=== PATIENT | female | born 1980 | race Caucasian/White ===

== ENCOUNTER 2018-11-03 17:19 | Emergency (ER) | payer BC, OTHER ==
[2018-11-03 18:08] LABS: Absolute Lymphocytes (CBC) 1.9 K/uL (0.7-4.9); Basophils % 0.6 % (0-1.3); Hematocrit 40.1 % (36.0-45.0); Lymphocytes % 25.7 % (15.3-44.8); MPV 9.4 fL (7.6-11.3); RBC Red Blood Cell Count 4.51 M/uL (3.86-4.86)
[2018-11-03 18:26] LABS: Bilirubin Direct 2.6 mg/dL (0-0.2); Bilirubin Total 4.2 mg/dL (0.2-1.0); Potassium 3.5 mmol/L (3.5-5.1); Protein, Total 8.5 g/dL (6.4-8.2)
[2018-11-03] MEDS ORDERED: FAMOTIDINE 20 MG/2 ML VIAL IV ONE (19:00)
[2018-11-03] MEDS ORDERED: NA CHLORIDE 0.9% 2,000 ML ONE (19:00)
--- NOTE | 2018-11-03 19:11 | ER ---
Nurse's Notes [facility] Name: Ema Caballero Age: 38 yrs Sex: Female : 1980 Arrival Date: 11/03/2018 Time: 17:22 Bed 18 Private MD: Diagnosis: Abdominal tenderness;Cholelithiasis;Acute pancreatitis Presentation: 11/03 17:35 Presenting complaint: Patient states: Epigastric pain that radiates to the upper back, sg reports normal BM, denies Nausea reports vomiting x1 but no relief from symptoms, pt states has happened in the past but went away, this time its consistent. pt denies any symptoms at this time, pt denies fever. Transition of care: patient was not received from another setting of care. Onset of symptoms was November 03, 2018. Risk Assessment: Do you want to hurt yourself or someone else? Patient reports no desire to harm self or others. Initial Sepsis Screen: Does the patient meet any 2 criteria? No. Patient's initial sepsis screen is negative. Does the patient have a suspected source of infection? No. Patient's initial sepsis screen is negative. Care prior to arrival: None. 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 - Social history:: Smoking status: Patient/guardian denies using tobacco. - Ebola Screening: : Patient negative for fever greater than or equal to 101.5 degrees Fahrenheit, and additional compatible Ebola Virus Disease symptoms Patient denies exposure to infectious person Patient denies travel to an Ebola-affected area in the 21 days before illness onset No symptoms or risks identified at this time. Screenin:58 Abuse screen: Denies threats or abuse. Denies injuries from another. Nutritional sg screening: No deficits noted. Tuberculosis screening: No symptoms or risk factors identified. Never had TB. 22:03 Fall Risk ao Assessment: 17:57 General: Appears in no apparent distress. well groomed, well developed, well nourished, sg Behavior is calm, cooperative, appropriate for age. Pain: Complains of pain in left mid back, right mid back and epigastric area. Neuro: Level of Consciousness is awake, alert, obeys commands, Oriented to person, place, time. Cardiovascular: Capillary refill is brisk in bilateral fingers Patient's skin is warm and dry. Chest pain is denied. Respiratory: Airway is patent Respiratory effort is even, unlabored, Respiratory pattern is regular, symmetrical. GI: Abdomen is round non-distended, Reports normal bowel habits, tolerance of fluids, tolerance of food, vomiting. : No signs and/or symptoms were reported regarding the genitourinary system. EENT: No signs and/or symptoms were reported regarding the EENT system. Derm: Skin is pink, warm \T\ dry. Musculoskeletal: No signs and/or symptoms reported regarding the musculoskeletal system. 19:40 General: Appears in no apparent distress. comfortable, Behavior is calm, cooperative, ao appropriate for age. Pain: Complains of pain in epigastric area. Neuro: Level of Consciousness is awake, alert, obeys commands, Oriented to person, place, time, Appropriate for age Moves all extremities. Full function Speech is normal, Facial symmetry appears normal. Cardiovascular: Capillary refill < 3 seconds is brisk Patient's skin is warm and dry. Respiratory: Airway is patent Respiratory effort is even, unlabored, Respiratory pattern is regular, symmetrical. GI: Abdomen is round non-distended, Reports lower abdominal pain, normal bowel habits, tolerance of fluids, tolerance of food. : No signs and/or symptoms were reported regarding the genitourinary system. EENT: No signs and/or symptoms were reported regarding the EENT system. Derm: Skin is intact, Skin is pink, warm \T\ dry. Musculoskeletal: No signs and/or symptoms reported regarding the musculoskeletal system. 20:30 Reassessment: EMS ETA is 2 hours. Patient in no distress. ao 22:39 Reassessment: Patient and/or family updated on plan of care and expected duration. Pain ao level reassessed. Patient is alert, oriented x 3, equal unlabored respirations, skin warm/dry/pink. Waiting on EMS for transportation. 23:50 Reassessment: hand off care to [facility] Patient stable at this time. ao Vital Signs: 17:37 BP 133 / 90; Pulse 81 MON; Resp 17 S; Temp 97.4; Pulse Ox 99% on R/A; Weight 104.33 kg sg (R); Height 5 ft. 3 in. (160.02 cm) (R); 19:43 BP 132 / 88; Pulse 69; Resp 16; Pulse Ox 99% ; ao 20:30 BP 123 / 79; Pulse 66; Resp 18; Pulse Ox 99% on R/A; Pain 4/10; ao 22:39 BP 123 / 75; Pulse 65; Resp 16; Pulse Ox 100% on R/A; ao 17:37 Body Mass Index 40.74 (104.33 kg, 160.02 cm) ED Course: 17:22 Patient arrived in ED. as 17:24 Everett Sagastume MD is Attending Physician. kdr 17:34 Yogi Dias, ELEUTERIO is Primary Nurse. sg 17:35 Arm band placed on right wrist. sg 17:37 Triage completed. sg 17:50 Initial lab(s) drawn, by pr, sent to lab. Inserted saline lock: 20 gauge in right sg antecubital area, using aseptic technique. Blood collected. 17:57 Urine collected: clean catch specimen. sg 18:35 Attending Physician role handed off by Everett Sagastume MD tali 18:35 Lonnie Gallegos MD is Attending Physician. tali 18:44 Radiology exam delayed due to test not completed at this time. [email or web address] 18:50 XRAY Chest (1 view) In Process Unspecified. EDMS 19:00 Initial lab(s) drawn, by pr, sent to lab. lab add ons have been sent as ordered by . 19:05 US Abdomen Limited In Process Unspecified. EDMS 19:18 Radiology exam delayed due to test not completed at this time. eh 20:[address] via wheelchair. eh 20:12 CT completed. Patient tolerated procedure well. Patient moved back from CT. eh 20:16 CT Abd/Pelvis - IV Contrast Only In Process Unspecified. EDMS 22:00 Basic Metabolic Panel Sent. ao 22:03 Patient has correct armband on for positive identification. Pulse ox on. NIBP on. ao 23:51 No provider procedures requiring assistance completed. Patient transferred, IV remains ao in place. Administered Medications: 18:45 Drug: NS 0.9% 1000 ml Route: IV; Rate: 1 bolus; Site: right antecubital; sg 21:59 Follow up: IV Status: Completed infusion; IV Intake: 1000ml ao 18:45 Drug: NS 0.9% 1000 ml Route: IV; Rate: 1 bolus; Site: right antecubital; sg 21:59 Follow up: IV Status: Completed infusion; IV Intake: 1000ml ao 19:30 Drug: Pepcid 20 mg Route: IVP; Site: right antecubital; ao 21:59 Follow up: Response: No adverse reaction ao 19:31 Drug: Zosyn 3.375 grams Route: IVPB; Infused Over: 60 mins; Site: right antecubital; ao 21:00 Follow up: IV Status: Completed infusion; IV Intake: 100ml ao 19:52 Not Given (Duplicate Order): NS 0.9% 1000 ml IV at 125 ml/hr continuous atli 21:58 Drug: NS 0.9% 1000 ml Route: IV; Rate: 250 ml/hr; Site: right antecubital; ao 23:53 Follow up: IV Status: Infusion continued upon transfer; IV Intake: 500ml ao Intake: 21:00 IV: 100ml; Total: 100ml. ao 21:59 IV: 1000ml; Total: 1100ml. ao 21:59 IV: 1000ml; Total: 2100ml. ao 23:53 IV: 500ml; Total: 2600ml. ao Outcome: 19:10 ER care complete, transfer ordered by . tali 23:52 Transferred by [facility] to [facility], Transfer form completed. ao 23:52 Condition: stable 23:52 Instructed on the need for transfer. 23:53 Patient left the ED. ao Signatures: Dispatcher [employer] EDYogi Esteban, RN Lonnie Jaime MD MD cha Rittger, Kevin, MD MD kdr Hagler, Ervin eh Martinez, Amelia as Ortiz, Alex, RN RN ao Garcia, Jessica [email or web address]
--- NOTE | 2018-11-03 19:12 | EDPHYS ---
Physician Documentation [facility] Name: Ema Caballero Age: 38 yrs Sex: Female : 1980 Arrival Date: 11/03/2018 Time: 17:22 Bed 18 Private MD: ED Physician Lonnie Gallegos HPI: 11/03 18:37 This 38 yrs old Female presents to ER via Ambulatory with complaints of kdr Epigastric Pain, Back Pain. 18:37 The patient presents with abdominal pain in the epigastric area, in the upper abdomen, kdr in the left upper quadrant. Onset: The symptoms/episode began/occurred suddenly, 3 day(s) ago. The symptoms radiate to left back. Associated signs and symptoms: Pertinent positives: nausea and vomiting, constipation, Pertinent negatives: blood in stools, chest pain, diarrhea, dysuria, fever, headache, hematuria, palpitations, shortness of breath, vaginal discharge, vomiting blood. The symptoms are described as achy, crampy, intermittent, vague, waxing/waning. Modifying factors: The symptoms are alleviated by nothing, the symptoms are aggravated by nothing. Severity of pain: At its worst the pain was severe today, in the emergency department the pain has improved markedly, pain almost resolved in the ED. The patient has experienced similar episodes in the past, a few times, but today's symptoms are worse, lasting longer. The patient has not recently seen a physician. 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 - Social history:: Smoking status: Patient/guardian denies using tobacco. - Ebola Screening: : Patient negative for fever greater than or equal to 101.5 degrees Fahrenheit, and additional compatible Ebola Virus Disease symptoms Patient denies exposure to infectious person Patient denies travel to an Ebola-affected area in the 21 days before illness onset No symptoms or risks identified at this time. ROS: 18:37 Constitutional: Negative for fever, chills, and weight loss, Eyes: Negative for injury, kdr pain, redness, and discharge, Neck: Negative for injury, pain, and swelling, Cardiovascular: Negative for chest pain, palpitations, and edema, Respiratory: Negative for shortness of breath, cough, wheezing, and pleuritic chest pain, Back: Negative for injury and pain, : Negative for injury, bleeding, discharge, and swelling, MS/Extremity: Negative for injury and deformity, Skin: Negative for injury, rash, and discoloration, Neuro: Negative for headache, weakness, numbness, tingling, and seizure activity. Psych: Negative for depression, anxiety, suicide ideation, homicidal ideation, and hallucinations, Allergy/Immunology: Negative for hives, rash, and allergies, Endocrine: Negative for neck swelling, polydipsia, polyuria, polyphagia, and marked weight changes, Hematologic/Lymphatic: Negative for swollen nodes, abnormal bleeding, and unusual bruising. 18:37 Abdomen/GI: Positive for abdominal pain, nausea and vomiting, constipation, abdominal cramps, Negative for diarrhea, abdominal distension, anorexia, dysphagia, hematemesis, black/tarry stool, rectal pain, rectal bleeding, bowel incontinence. Exam: 18:37 Constitutional: This is a well developed, well nourished patient who is awake, alert, kdr and in no acute distress. Head/Face: Normocephalic, atraumatic. Eyes: Pupils equal round and reactive to light, extra-ocular motions intact. Lids and lashes normal. Conjunctiva and sclera are non-icteric and not injected. Cornea within normal limits. Periorbital areas with no swelling, redness, or edema. Neck: Trachea midline, no thyromegaly or masses palpated, and no cervical lymphadenopathy. Supple, full range of motion without nuchal rigidity, or vertebral point tenderness. No Meningismus. Chest/axilla: Normal chest wall appearance and motion. Nontender with no deformity. No lesions are appreciated. Cardiovascular: Regular rate and rhythm with a normal S1 and S2. No gallops, murmurs, or rubs. Normal PMI, no JVD. No pulse deficits. Respiratory: Lungs have equal breath sounds bilaterally, clear to auscultation and percussion. No rales, rhonchi or wheezes noted. No increased work of breathing, no retractions or nasal flaring. Back: No spinal tenderness. No costovertebral tenderness. Full range of motion. Skin: Warm, dry with normal turgor. Normal color with no rashes, no lesions, and no evidence of cellulitis. MS/ Extremity: Pulses equal, no cyanosis. Neurovascular intact. Full, normal range of motion. Neuro: Awake and alert, GCS 15, oriented to person, place, time, and situation. Cranial nerves II-XII grossly intact. Motor strength 5/5 in all extremities. Sensory grossly intact. Cerebellar exam normal. Normal gait. Psych: Awake, alert, with orientation to person, place and time. Behavior, mood, and affect are within normal limits. 18:37 Abdomen/GI: Inspection: obese Bowel sounds: active, all quadrants, Palpation: soft, mild abdominal tenderness, in the epigastric area and left upper quadrant, mass, is not appreciated, rebound tenderness, is not appreciated, Pain is minimal at best. Vital Signs: 17:37 BP 133 / 90; Pulse 81 MON; Resp 17 S; Temp 97.4; Pulse Ox 99% on R/A; Weight 104.33 kg sg (R); Height 5 ft. 3 in. (160.02 cm) (R); 19:43 BP 132 / 88; Pulse 69; Resp 16; Pulse Ox 99% ; ao 20:30 BP 123 / 79; Pulse 66; Resp 18; Pulse Ox 99% on R/A; Pain 4/10; ao 22:39 BP 123 / 75; Pulse 65; Resp 16; Pulse Ox 100% on R/A; ao 17:37 Body Mass Index 40.74 (104.33 kg, 160.02 cm) MDM: 18:35 Patient medically screened. [facility] 19:40 Data reviewed: vital signs, nurses notes, lab test result(s), EKG, radiologic studies, tali plain films. 11/03 17:28 Order name: Basic Metabolic Panel [facility] 11/03 17:28 Order name: CBC with Diff; Complete Time: 18:33 [facility] 11/03 17:28 Order name: Creatinine for Radiology; Complete Time: 18:33 [facility] 11/03 17:28 Order name: Hepatic Function; Complete Time: 18:33 [facility] 11/03 17:28 Order name: Lipase; Complete Time: 18:33 [facility] 11/03 17:29 Order name: Basic Metabolic Panel; Complete Time: 18:33 EDMS 11/03 18:36 Order name: Magnesium; Complete Time: 19:38 tali 11/03 18:36 Order name: NT PRO-BNP; Complete Time: 19:38 [facility] 11/03 18:36 Order name: PT-INR; Complete Time: 19:38 [facility] 11/03 18:36 Order name: Troponin (emerg Dept Use Only); Complete Time: 19:38 [facility] 11/03 18:36 Order name: XRAY Chest (1 view); Complete Time: 21:00 [facility] 11/03 18:36 Order name: CT Abd/Pelvis - IV Contrast Only; Complete Time: 21:00 [facility] 11/03 19:11 Order name: Test, Serum; Complete Time: 19:38 11/03 19:12 Order name: Urine Dipstick--Ancillary (enter results); Complete Time: 19:38 [facility] 11/03 17:28 Order name: IV Saline Lock; Complete Time: 17:58 [facility] 11/03 17:28 Order name: Labs collected and sent; Complete Time: 17:58 [facility] 11/03 18:36 Order name: EKG; Complete Time: 18:38 [facility] 11/03 18:36 Order name: Cardiac monitoring; Complete Time: 18:39 [facility] 11/03 18:36 Order name: EKG - Nurse/Tech; Complete Time: 22:51 [facility] 11/03 18:36 Order name: O2 Per Protocol; Complete Time: 18:39 [facility] 11/03 18:36 Order name: O2 Sat Monitoring; Complete Time: 18:39 [facility] 11/03 18:36 Order name: US Abdomen Limited; Complete Time: 21:00 [facility] Administered Medications: 18:45 Drug: NS 0.9% 1000 ml Route: IV; Rate: 1 bolus; Site: right antecubital; sg 21:59 Follow up: IV Status: Completed infusion; IV Intake: 1000ml ao 18:45 Drug: NS 0.9% 1000 ml Route: IV; Rate: 1 bolus; Site: right antecubital; sg 21:59 Follow up: IV Status: Completed infusion; IV Intake: 1000ml ao 19:30 Drug: Pepcid 20 mg Route: IVP; Site: right antecubital; ao 21:59 Follow up: Response: No adverse reaction ao 19:31 Drug: Zosyn 3.375 grams Route: IVPB; Infused Over: 60 mins; Site: right antecubital; ao 21:00 Follow up: IV Status: Completed infusion; IV Intake: 100ml ao 19:52 Not Given (Duplicate Order): NS 0.9% 1000 ml IV at 125 ml/hr continuous tali 21:58 Drug: NS 0.9% 1000 ml Route: IV; Rate: 250 ml/hr; Site: right antecubital; ao 23:53 Follow up: IV Status: Infusion continued upon transfer; IV Intake: 500ml ao Disposition: 11/03/18 19:10 Transfer ordered to [facility]. Diagnosis are Abdominal tenderness, Cholelithiasis, Acute pancreatitis. - Reason for transfer: Higher level of care. - Accepting physician is to [facility], gi, surgery needed. - Condition is Stable. - Problem is new. - Symptoms have improved. Signatures: Dispatcher [employer] EDYogi Esteban, RN RN Lonnie Atkins MD MD cha Rittger, Kevin, MD MD [facility] Indra Cruz RN RN ao Corrections: (The following items were deleted from the chart) 23:53 19:10 11/03/2018 19:10 Transfer ordered to [facility]. Diagnosis is ao Abdominal tenderness; Cholelithiasis; Acute pancreatitis. Reason for transfer: Higher level of care. Accepting physician is to [facility], gi, surgery needed. Condition is Stable. Problem is new. Symptoms have improved. tali
[2018-11-03 19:13] LABS: Urine Blood NEGATIVE (NEG); Urine Glucose NEGATIVE (NEG); Urine Protein NEGATIVE (NEG); Urine Specific Gravity <1.005 (1.005-1.030); Urine pH 6.5 (5.0-7.0)
[2018-11-03 19:15] LABS: Protime INR 1.02
[2018-11-03 19:31] LABS: Magnesium 2.3 mg/dL (1.8-2.4); NT PRO-BNP 6 pg/mL (<125); Troponin (Emerg Dept Use Only) < 0.02 ng/mL (0.0-0.045)
[2018-11-03] MEDS ORDERED: PIPER/TAZO/NS 3.375gm 3.375 GM/100 ML BAG ONE (19:39)
--- NOTE | 2018-11-03 20:25 | RAD REPORT ---
EXAM DESCRIPTION: [place] Single View11/03/2018 6:49 pm CLINICAL HISTORY: abd pain COMPARISON: none FINDINGS: The lungs appear clear of acute infiltrate. The heart is normal size IMPRESSION: No acute abnormalities displayed
--- NOTE | 2018-11-03 20:25 | RAD REPORT ---
EXAM DESCRIPTION: CT - Abdomen Pelvis W Contrast - 11/03/2018 8:12 pm CLINICAL HISTORY: Abdominal pain . COMPARISON: none. TECHNIQUE: Computed axial tomography of the abdomen pelvis was obtained. 100 cc Isovue-300 was admin istered intravenously. Oral contrast was not requested which limits evaluation of bowel. All CT scans are performed using dose optimization technique as appropriate and may include automated exposure control or mA/KV adjustment according to patient size. FINDINGS: Fatty liver Cholelithiasis. Mild dilatation of the intra and extrahepatic biliary tree Spleen, pancreas, adrenal and kidneys appear unremarkable. There is no evidence of diverticulitis. Normal appendix IMPRESSION: Cholelithiasis. Mild dilatation of the biliary tree may indicate a stone within the comm on bile duct
--- NOTE | 2018-11-03 20:26 | RAD REPORT ---
EXAM DESCRIPTION: US - Abdomen Exam Limited - 11/03/2018 7:04 pm CLINICAL HISTORY: Abdominal pain. COMPARISON: None. FINDINGS: The gallbladder wall is not thickened. Multiple gallstones. Common bile duct measures approximately 7.5 millimeters Fatty liver with focal fatty sparing near the gallbladder IMPRESSION: Cholelithiasis. Dilatation of the common bile duct may indicate a stone within the duct
[2018-11-03] MEDS ORDERED: NA CHLORIDE 0.9% 1,000 ML ONE (22:13)
[2018-11-04 01:11] VITALS: TEMP 97.4
[2018-11-04 01:13] VITALS: BP 123/75; O2SAT 100
--- NOTE | 2018-11-04 13:38 | EKG ---
Test Date: 2018-11-03 Test Time: 18:54:20 Conveyancer: SWG MEASUREMENT RESULTS: Intervals: Rate: 75 NE: 198 QRSD: 84 QT: 390 QTc: 435 [place]: P: 34 NE: 198 QRS: 50 T: 6 INTERPRETIVE STATEMENTS: Normal sinus rhythm Normal ECG No previous ECG available for comparison Electronically Signed On 11-04-18 13:34:22 CDT by Josse Walker
== END 2018-11-03 23:53 | disposition short-term general hospital (02) ==
LOC: ER 17:19
DX: K80.20 Calculus of gallbladder without cholecystitis without obstruction (principal); K85.90 Acute pancreatitis without necrosis or infection, unspecified
CPT/HCPCS: 36415; 71045; 74177; 76705; 80048; 80076; 81003; 83690; 83735; 83880; 84484; 84703; 85025; 85610; 93005; 96361; 96365; 96375; 99285; J2543; J7030; Q9967

== ENCOUNTER 2023-09-25 20:48 | Emergency (ER) | payer BC ==
[2023-09-25] MEDS ORDERED: LIDOCAINE 1% MPF 2 ML AMPULE ONE (21:06)
--- NOTE | 2023-09-25 21:21 | ER ---
Nurse's Notes [facility] Name: Ema Caballero Age: 43 yrs Sex: Female : 1980 Arrival Date: 09/25/2023 Time: 20:48 Bed 11 Private MD: Diagnosis: Laceration without foreign body of left index finger without damage to nail Presentation: 09/24 20:59 Chief complaint: Patient states: I was cleaning my head paper tester when by accident I cut ha1 my left index finger. Coronavirus screen: Vaccine status: Patient reports being unvaccinated. Ebola Screen: No symptoms or risks identified at this time. Complicating Factors: There are no complicating factors for this patient. Initial Sepsis Screen: Does the patient meet any 2 criteria? No. Patient's initial sepsis screen is negative. Does the patient have a suspected source of infection? No. Patient's initial sepsis screen is negative. Risk Assessment: Do you want to hurt yourself or someone else? Patient reports no desire to harm self or others. Onset of symptoms was September 25, 2023. 20:59 Method Of Arrival: Ambulatory ha1 20:59 Acuity: EN 4 ha1 Triage Assessment: 21:02 General: Appears uncomfortable, Behavior is calm, cooperative. Pain: Complains of pain ha1 in dorsal aspect of proximal phalanx of left index finger Pain does not radiate. Pain currently is 6 out of 10 on a pain scale. Neuro: Level of Consciousness is awake, alert, obeys commands, Oriented to person, place, time, situation. Respiratory: Airway is patent Respiratory effort is even, unlabored, Respiratory pattern is regular, symmetrical. Injury Description: Laceration sustained to dorsal aspect of proximal phalanx of left middle finger is clean, 2.6 to 7.5 cm long, not bleeding, was sustained 1-2 hours ago. is bleeding a small amount a dressing was applied. 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 - Infectious Disease History:: Denies. - Social history:: Smoking status: Patient denies any tobacco usage or history of. Screenin:05 Abuse screen: Denies threats or abuse. Denies injuries from another. Nutritional ha1 screening: No deficits noted. Tuberculosis screening: No symptoms or risk factors identified. 21:[address] [facility] ED Fall Risk Assessment (Adult) History of falling in the last 3 months, nj1 including since admission No falls in past 3 months (0 pts) Confusion or Disorientation No (0 pts) Intoxicated or Sedated No (0 pts) Impaired Gait No (0 pts) Mobility Assist Device Used No (0 pt) Altered Elimination No (0 pt) Score/Fall Risk Level 0 - 2 = Low Risk Oriented to surroundings, Maintained a safe environment, Hourly rounding (assess needs \T\ fall precautionary measures) done. Assessment: 21:08 General: Appears in no apparent distress. comfortable, Behavior is calm, cooperative, nj1 appropriate for age. Pain: Complains of pain in left index finger Pain currently is 6 out of 10 on a pain scale. Neuro: Level of Consciousness is awake, alert, obeys commands, Oriented to person, place, time, situation. Cardiovascular: Patient's skin is warm and dry. Respiratory: Airway is patent Respiratory effort is even, unlabored. Injury Description: Laceration sustained to dorsal aspect of proximal phalanx of left index finger is 0.5 to 2.5 cm long. Vital Signs: 20:59 BP 144 / 102; Pulse 98; Resp 18 S; Temp 98.1(T); Pulse Ox 100% on R/A; Weight 86.18 kg; ha1 Height 5 ft. 3 in. ; 20:59 Body Mass Index 33.66 (86.18 kg, 160.02 cm) [facility] ED Course: 20:51 Patient arrived in ED. ra3 20:54 Patient has correct armband on for positive identification. Bed in low position. Call ha1 light in reach. Side rails up X 1. Adult w/ patient. 20:55 [facility] kb 20:55 Elian Bello MD is Attending Physician. kb 21:02 Triage completed. ha1 21:06 Susan Mello, ELEUTERIO is Primary Nurse. nj1 21:11 Arm band placed on right wrist. ha1 21:11 Provided Education on: call light, fall precautions. nj1 21:30 Wound care: to laceration located on left index finger was dressed with Kerlix, Non nj1 adherent pad. 21:32 No provider procedures requiring assistance completed. Patient did not have IV access nj1 during this emergency room visit. Administered Medications: 21:13 Drug: Lidocaine Infiltration (1 %) 1 vials 5 ml Infiltration once; to bedside {Note: nj1 Given to Pippa Carvalho IMPROVEMENT ANALYST for administration.} Volume: 5 ml; Route: Infiltration; Medication: 21:33 VIS not applicable for this client. nj1 Outcome: : Discharge ordered by MD. severino 21:33 Discharged to home ambulatory, with family, nj1 :33 Condition: stable 21:33 Discharge instructions given to patient, Instructed on discharge instructions, follow up and referral plans. safety practices, wound care, Demonstrated understanding of instructions, follow-up care, wound care, :33 Patient left the ED. nj1 Signatures: Esperanza Carvalho, BARK FITTER-C BARK FITTER-Desi Barnes RN RN 1 Susan Mello RN RN nj1 Lita Ramsey ra3 Corrections: (The following items were deleted from the chart) 21:10 20:59 Chief complaint: Patient states: I was cleaning my head paper tester when by accident ha1 I cut my left middle finger. ha1 21:10 21:02 Pain: Complains of pain in dorsal aspect of proximal phalanx of left middle ha1 finger Pain does not radiate. Pain currently is 6 out of 10 on a pain scale. ha1
--- NOTE | 2023-09-25 21:21 | EDPHYS ---
Physician Documentation [facility] Name: Ema Caballero Age: 43 yrs Sex: Female : 1980 Arrival Date: 09/25/2023 Time: 20:48 Bed 11 Private MD: ED Physician Elian Bello HPI: 09/24 21:28 This 43 yrs old Female presents to ER via Ambulatory with complaints of kb Laceration To Hand. 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 - Infectious Disease History:: Denies. - Social history:: Smoking status: Patient denies any tobacco usage or history of. ROS: 21:20 Constitutional: As per HPI kb Exam: 21:27 Constitutional: This is a well developed, well nourished patient who is awake, alert, kb and in no acute distress. Head/Face: Normocephalic, atraumatic. ENT: Moist Mucous membranes Cardiovascular: Regular rate Respiratory: Respirations even and unlabored. No increased work of breathing. Talking in full sentences MS/ Extremity: Pulses equal, no cyanosis. Neurovascular intact. Full, normal range of motion. Neuro: Awake and alert, GCS 15, oriented to person, place, time, and situation. Moves all extremities. Normal gait. 21:27 Skin: injury, laceration(s), the wound is approximately 2.5 cm(s), of the dorsal aspect of proximal phalanx of left index finger, that can be described as clean, no foreign body, irregular, without bleeding, Vital Signs: 20:59 BP 144 / 102; Pulse 98; Resp 18 S; Temp 98.1(T); Pulse Ox 100% on R/A; Weight 86.18 kg; ha1 Height 5 ft. 3 in. ; 20:59 Body Mass Index 33.66 (86.18 kg, 160.02 cm) ha1 Laceration: 21:20 Wound Repair of 2.5cm ( 1.0in ) subcutaneous laceration to dorsal aspect of proximal kb phalanx of left index finger. Irregularly shaped.. Distal neuro/vascular/tendon intact. Anesthesia: Local anesthetic administered with 2 mls of 1% lidocaine. Wound prep: Extensive cleansing with hibiclenz by me, Wound irrigation with saline by me. Skin closed with 5 5-0 Prolene using simple sutures and sterile technique. Patient tolerated well. MDM: 20:56 Patient medically screened. kb 21:28 Differential diagnosis: superficial laceration, tendon injury, vascular injury. Data kb reviewed: vital signs, nurses notes. Counseling: I had a detailed discussion with the patient and/or guardian regarding the historical points, exam findings, and any diagnostic results supporting the discharge/admit diagnosis, the need for outpatient follow up, a family practitioner, to return to the emergency department if symptoms worsen or persist or if there are any questions or concerns that arise at home. 09/24 21:04 Order name: Dressing - Wound; Complete Time: 21:08 kb 09/24 21:04 Order name: Gloves, Sterile; Complete Time: 21:08 kb 09/24 21:04 Order name: Prolene, Sutures; Complete Time: 21:08 kb 09/24 21:04 Order name: Setup Suture Tray; Complete Time: 21:08 kb Administered Medications: 21:13 Drug: Lidocaine Infiltration (1 %) 1 vials 5 ml Infiltration once; to bedside {Note: nj1 Given to Pippa Carvalho BUSINESS LAW INSTRUCTOR for administration.} Volume: 5 ml; Route: Infiltration; Disposition: 23:15 Co-signature as Attending Physician, Elian Bello MD I agree with the assessment sp4 and plan of care. I reviewed the patient's care provided by the Advanced Practice Provider and agree with the diagnosis and treatment plan. Disposition Summary: 09/25/23 21:21 Discharge Ordered Notes: Location: Home kb Condition: Stable kb Diagnosis - Laceration without foreign body of left index finger without damage to nail kb Followup: kb - With: Emergency Department - When: As needed - Reason: Worsening of condition Followup: kb - With: Private Physician - When: 2 - 3 days - Reason: Recheck today's complaints, Continuance of care, Re-evaluation by your physician Discharge Instructions: - Discharge Summary Sheet kb - Laceration Care, Adult, [id number] kb Forms: - Medication Reconciliation Form kb - Antibiotic Education kb - Prescription Opioid Use kb - Patient Portal Instructions kb - Leadership Thank You Letter kb Signatures: Esperanza Carvalho FNP-C FNP-Ckb Ayala, Heidy RN RN ha1 Elian Bello MD MD sp4 Susan Mello RN RN nj1
[2023-09-25 21:56] VITALS: BP 144/102; TEMP 98.1; O2SAT 100
== END 2023-09-25 21:33 | disposition home or self-care (01) ==
LOC: ER 20:48
PROC: 0HQGXZZ Repair Left Hand Skin, External Approach (ICD-10-PCS; principal; 2023-09-25)
DX: S61.211A Laceration without foreign body of left index finger without damage to nail, initial encounter (principal)